=== PATIENT | male | born 1980 | race American Indian/Alaskan Native ===

== ENCOUNTER 2020-09-11 20:56 | Emergency (ER) | payer BC, MEDICAID ==
--- NOTE | 2020-09-11 21:50 | EDM.PDOC ---
ED HPI GENERAL MEDICAL PROBLEM - General Chief Complaint: Diabetic Complaint Stated Complaint: HIGH BLOOD SUGAR Time Seen by Provider: 09/11/20 21:45 Source of Information: Reports: Patient, Family, RN Notes Reviewed History Limitations: Reports: No Limitations - History of Present Illness INITIAL COMMENTS - FREE TEXT/NARRATIVE: 40-year-old gentleman presents emergency department today complaint of high blood sugars. He has known that he has diagnosed with prediabetes about 2 years ago recently established with primary care diagnosis of diabetes he has had his blood sugar checked a few times in the past with numbers as high as 500. He was started on Metformin with increasing dosing over the week initially started at 500 mg and will progress to more maximum doses. However blood work was drawn yesterday of the blood work he had a blood sugar of 640 yesterday, the [facility] nurses line reviewed this level and recommended he report to the emergency department right away. He is asymptomatic at this time - Related Data Allergies Allergy/AdvReac Type Severity Reaction Status Date / Time No Known Allergies Allergy Verified 09/11/20 21:15 Home Meds: Home Meds Simvastatin [Zocor] 10 mg PO DAILY 09/11/20 [History] metFORMIN [Glucophage] 500 mg PO BIDMEALS 09/11/20 [History] Past Medical History HEENT History: Reports: Impaired Vision, Other (See Below) Other HEENT History: frequent ear infections as child Cardiovascular History: Reports: Heart Murmur, High Cholesterol Genitourinary History: Reports: Other (See Below) Other Genitourinary History: possible kidney stone passed in JUL. Musculoskeletal History: Reports: Fracture Endocrine/Metabolic History: Reports: Diabetes, Type II Social & Family History - Tobacco Use Tobacco Use Status *Q: Never Tobacco User Second Hand Smoke Exposure: No - Caffeine Use Caffeine Use: Reports: None - Recreational Drug Use Recreational Drug Use: No ED ROS GENERAL - Review of Systems Review Of Systems: See Below Constitutional: Reports: No Symptoms HEENT: Reports: No Symptoms Respiratory: Reports: No Symptoms Cardiovascular: Reports: No Symptoms GI/Abdominal: Reports: No Symptoms : Reports: No Symptoms Musculoskeletal: Reports: No Symptoms Skin: Reports: No Symptoms Neurological: Reports: No Symptoms ED EXAM GENERAL NO PERIP PULSE - Physical Exam Exam: See Below Exam Limited By: No Limitations General Appearance: Alert, WD/WN, No Apparent Distress Respiratory/Chest: No Respiratory Distress Course - Vital Signs Last Recorded V/S: Last Vital Signs Temp 96.4 F L 09/11/20 21:26 Pulse 83 09/11/20 21:26 Resp 20 09/11/20 21:26 BP 149/96 H 09/11/20 21:26 Pulse Ox 100 09/11/20 21:26 Departure - Departure Time of Disposition: 21:50 Disposition: Home, Self-Care 01 Condition: Fair Clinical Impression: Hyperglycemia - Discharge Information Instructions: Type 2 Diabetes Mellitus, Diagnosis, Adult, [id number] Referrals: PCP,None [Primary Care Provider] - Additional Instructions: Continue with your Metformin, continue the dosing increase later by your primary care provider, keep your follow-up appointment with your primary care provider, call or return to the emergency department worsening of symptoms Sepsis Event Note (ED) - Evaluation Sepsis Screening Result: No Definite Risk - Focused Exam Vital Signs: Vital Signs Temp Pulse Resp BP Pulse Ox 09/11/20 21:26 96.4 F L 83 20 149/96 H 100 09/11/20 21:14 96.4 F L 83 20 149/96 H 100 - Assessment/Plan Plan: Assessment Acuity = acute Site and laterality = diabetes mellitus type 2 poor control Etiology = unknown Manifestations = fatigue Location of injury = Home Lab values = none Plan Spent time counseling him on the progression of his diabetes he has established with primary care there is a plan in place he is can slowly increase his Metformin by week to help reduce the side effects I am suspicious this gentleman will probably end up on insulin however I would recommend he continue with his primary care as planned he is asymptomatic at this time therefore I did not proceed with any other lab work This note was dictated using [employer] voice recognition software please call with any questions on syntax or grammar.
== END 2020-09-11 22:18 | disposition home or self-care (01) ==
LOC: JP.ED 20:56
DX: E11.65 Type 2 diabetes mellitus with hyperglycemia (principal); E78.00 Pure hypercholesterolemia, unspecified; Z79.84 Long term (current) use of oral hypoglycemic drugs; Z79.899 Other long term (current) drug therapy
CPT/HCPCS: 99284